=== PATIENT | female | born 1985 | race Caucasian/White ===

== ENCOUNTER 2018-06-27 01:25 | Emergency (ER) | payer MEDICAID ==
[~2018-06-27] VITALS: Ht 175.3 cm; Wt 90.9 kg
[2018-06-27] MEDS ORDERED: ipratropium/albuterol 3ml nebule NEB ONE (01:45)
[2018-06-27] MEDS ORDERED: dexamethasone 4mg tablet PO ONE (01:45)
[2018-06-27 03:25] VITALS: BP 171/118
[2018-06-27] MEDS ORDERED: DOXY100C43 PO (03:59)
[2018-06-27] MEDS ORDERED: ALBU8HFA PO (03:59)
[2018-06-27] MEDS ORDERED: PRED20TA PO (03:59)
== END 2018-06-27 04:18 | disposition left against medical advice (07) ==
LOC: ER 01:26
DX: J20.9 Acute bronchitis, unspecified (principal); J06.9 Acute upper respiratory infection, unspecified; F17.210 Nicotine dependence, cigarettes, uncomplicated; Z88.1 Allergy status to other antibiotic agents; Z79.899 Other long term (current) drug therapy
CPT/HCPCS: 94640; 94760; 99283; J8540

== ENCOUNTER 2018-06-30 17:41 | Inpatient (IN) | payer MEDICAID ==
[~2018-06-30] VITALS: Ht 175.3 cm; Wt 105.2 kg
[~2018-06-30 17:41] MED LIST: ALBU8HFA PO; DOXY100C43 PO; PRED20TA PO
[2018-06-30] MEDS ORDERED: acetaminophen 325mg tablet PO STA (18:04)
[2018-06-30] MEDS ORDERED: normal saline 1000ML IV soln IV ONE (18:05)
[2018-06-30] MEDS ORDERED: methylPREDNISolone sod succ 125mg/2ml vial IV ONE (18:15)
[2018-06-30] MEDS ORDERED: ipratropium/albuterol 3ml nebule NEB ONE (18:15)
[2018-06-30] MEDS ORDERED: azithromycin/NS 500mg/250ml 250 ML IV ONE (18:15)
[2018-06-30] MEDS ORDERED: CefTRIAXone 2gm/D5W 50ml 50 ML IV ONE (18:15)
[2018-06-30 19:05] LABS: ABG BASE EXCESS -2.4 mmol/L (-2.0-3.0); ABG HCO3 20.3 mmol/L (22.0-26.0); ABG OXYGEN SATURATION 86.3 % (95-98); ABG PCO2 (T) 28.4 mmHg (32.0-45.0); ABG PH (T) 7.471 (7.350-7.450); ABG PO2 (T) 51.6 mmHg (83-108); FCOHb 0.2 % (0.5-1.5); FLOW 15 L/min; FMetHb 0.1 % (0.3-1.12); PATIENT TEMPERATURE 36.8; RESPIRATORY RATE (OBSERVED) 26 b/min
[2018-06-30] MEDS ORDERED: LORazepam 2 mg/ml vial IV ONE ×2 (19:10→20:15)
[2018-06-30 19:13] LABS: ALANINE AMINOTRANSFERASE 27 U/L (12-78); ALBUMIN 2.4 G/DL (3.4-5.0); ALBUMIN/GLOBULIN RATIO 0.5 (1.1-1.5); ALKALINE PHOSPHATASE 57 IU/L (46-116); ANION GAP 14 (8-16); ASPARTATE AMINO TRANSFERASE 24 U/L (10-37); BILIRUBIN,TOTAL 0.5 MG/DL (0.1-1.0); BLOOD UREA NITROGEN 40 MG/DL (7-18); CALCIUM 8.3 MG/DL (8.5-10.1); CHLORIDE 104 MMOL/L (99-107); CREATININE 1.54 MG/DL (0.40-0.90); GLUCOSE 215 MG/DL (70-104); POTASSIUM 4.6 MMOL/L (3.5-5.1); SODIUM 138 MMOL/L (135-145); TOTAL CARBON DIOXIDE 20.3 MMOL/L (24-32); TOTAL PROTEIN 6.9 G/DL (6.4-8.2); eGFR 39 ML/MIN
[2018-06-30 19:18] LABS: BASOPHILS % (AUTO) 0.1 % (0-1); EOSINOPHILS # (AUTO) 0.3 X10'3 (0-0.9); EOSINOPHILS % (AUTO) 1.5 % (0-6); HEMATOCRIT 34.9 % (35.0-45.0); HEMOGLOBIN 11.4 g/dl (12.0-16.0); LYMPHOCYTES # (AUTO) 1.6 X10'3 (1.1-4.8); LYMPHOCYTES % (AUTO) 7.5 % (21-51); MEAN CORPUSCULAR HEMOGLOBIN 29.1 PG (27.0-31.0); MEAN CORPUSCULAR HGB CONC 32.6 % (33.0-36.5); MEAN CORPUSCULAR VOLUME 89.2 FL (78-98); MEAN PLATELET VOLUME 8.6 FL (7.4-10.4); MONOCYTES # (AUTO) 0.4 X10'3 (0-0.9); MONOCYTES % (AUTO) 1.7 % (2-12); NEUTROPHILS # (AUTO) 19.6 X10'3 (1.8-7.7); NEUTROPHILS % (AUTO) 89.2 % (42-75); PLATELET COUNT 307 X10'3 (140-440); RED BLOOD COUNT 3.92 X10'6 (4.20-5.60)
[2018-06-30] MEDS ORDERED: furosemide 10 MG/1 ML 10ml inj IV ONE (19:30)
[2018-06-30] MEDS ORDERED: iohexol 350MG/ML 100ml bottle IV ONE (19:33)
[2018-06-30 20:45] LABS: ABG BASE EXCESS -5.1 mmol/L (-2.0-3.0); ABG HCO3 18.9 mmol/L (22.0-26.0); ABG OXYGEN SATURATION 96.5 % (95-98); ABG PH (T) 7.399 (7.350-7.450); ABG PO2 (T) 92.7 mmHg (83-108); FCOHb 0.3 % (0.5-1.5); FMetHb 0.2 % (0.3-1.12); MINUTE VOLUME 33 L/min; PATIENT TEMPERATURE 36.3; RESPIRATORY RATE 14 b/min; RESPIRATORY RATE (OBSERVED) 34 b/min; TOTAL HEMOGLOBIN 11.9 G/dl (12.0-16.0)
[2018-06-30 21:02] LABS: CLARITY,URINE SLIGHTLY CLOUDY (Clear); COLOR,URINE YELLOW (Yellow); GLUCOSE, URINE NEGATIVE (Neg); KETONES,URINE NEGATIVE (Neg); LEUKOCYTE ESTERASE ,URINE SMALL (Neg); NITRITES, URINE NEGATIVE (Neg); OCCULT BLOOD,URINE LARGE (Neg); PROTEIN,URINE TRACE mg/dl (Neg); UROBILINOGEN,URINE 0.2 E.U/dL (0.2-1.0)
[2018-06-30 21:11] LABS: UA COLLECTION TYPE OTHER
[2018-06-30] MEDS ORDERED: vancomycin/NS 1 GM ADD-VANTAGE 250 ML IV ONE (21:15)
[2018-06-30 21:19] LABS: BACTERIA,URINE 2+ /HPF (Neg); SQUAMOUS EPITHELIAL CELL,UR MANY /LPF (FEW); YEAST FEW /HPF (NEGATIVE)
[2018-06-30 21:20] LABS: MUCUS STRANDS MODERATE /LPF (Neg)
[2018-06-30 21:23] LABS: WBC CASTS 0-3 /LPF (NEGATIVE)
[2018-06-30] MEDS ORDERED: magnesium hydroxide 30ml (MOM) UD suspension PO PRN (22:30)
[2018-06-30] MEDS ORDERED: ondansetron/PF 4mg/2ml inj IV PRN (22:30)
[2018-06-30] MEDS ORDERED: acetaminophen 650mg rectal suppository RC PRN (22:30)
[2018-06-30] MEDS ORDERED: acetaminophen 325mg tablet PO PRN (22:30)
[2018-06-30] MEDS ORDERED: potassium Cl 40MEQ/NS 500ml 500 ML IV PRN ×2 (22:30)
[2018-06-30] MEDS ORDERED: morphine 4 MG/ML inj SYRINge IV PRN ×2 (22:30)
[2018-06-30] MEDS ORDERED: labetalol 20mg/4ml (5mg/ml) syringe IV PRN (22:30)
[2018-06-30] MEDS: K, MAG and/or Phos replacement - Verify level? MC SCH (22:30)
[2018-06-30] MEDS ORDERED: potassium Cl 20 mEq SR tablet PO PRN ×2 (22:30)
[2018-06-30] MEDS ORDERED: LORazepam 2 mg/ml vial IV PRN (22:45)
--- NOTE | 2018-06-30 23:30 | NUR ---
Patient will be transferring to room CICU 2013 from ED. I have received report from JACKI Gracia and had the opportunity to ask questions.
--- NOTE | 2018-06-30 23:45 | NUR ---
Pt arrived from ED to room on NRB mask with sats at 99%, immediately transferred pt back to bipap at 80% Fio2. O2 saturations remained 99/100%. Pt somewhat anxious and exhibiting moderate pain. After patient repositioned and given warm blankets, she comfortably fell asleep with no signs of distress.
[2018-06-30] MEDS: ipratropium/albuterol 3ml nebule NEB SCH (23:53)
[2018-07-01] VITALS (23 sets, daily range): BP systolic 120–158; BP diastolic 62–102
[2018-07-01] MEDS: nitroGLYCERIN 1gm ointment UD TP SCH ×3 (01:32→20:24)
[2018-07-01] MEDS: oseltamivir phos 75mg capsule PO SCH ×3 (01:32→20:25)
--- NOTE | 2018-07-01 02:00 | NUR ---
Pt resting comfortably with no complaints.
[2018-07-01] MEDS: methylPREDNISolone sod succ 125mg/2ml vial IV SCH ×4 (02:01→20:23)
[2018-07-01 02:51] LABS: ABG BASE EXCESS 1.1 mmol/L (-2.0-3.0); ABG HCO3 24.9 mmol/L (22.0-26.0); ABG OXYGEN SATURATION 98.9 % (95-98); ABG PCO2 (T) 35.7 mmHg (32.0-45.0); ABG PH (T) 7.459 (7.350-7.450); ALLEN'S TEST Positive; FCOHb 0.3 % (0.5-1.5); FMetHb 0.1 % (0.3-1.12); FO2Hb 98.5 % (94-100); MINUTE VOLUME 13 L/min; PATIENT TEMPERATURE 36.4; RESPIRATORY RATE 14 b/min; RESPIRATORY RATE (OBSERVED) 23 b/min; TIDAL VOLUME 527 mL; TOTAL HEMOGLOBIN 11.6 G/dl (12.0-16.0)
[2018-07-01] MEDS: ipratropium/albuterol 3ml nebule NEB SCH ×6 (03:39→23:54)
[2018-07-01 04:55] LABS: BASOPHILS % (AUTO) 0.1 % (0-1); EOSINOPHILS # (AUTO) 0.2 X10'3 (0-0.9); EOSINOPHILS % (AUTO) 1.6 % (0-6); HEMATOCRIT 32.2 % (35.0-45.0); HEMOGLOBIN 10.7 g/dl (12.0-16.0); LYMPHOCYTES # (AUTO) 1.2 X10'3 (1.1-4.8); LYMPHOCYTES % (AUTO) 9.5 % (21-51); MEAN CORPUSCULAR HEMOGLOBIN 29.5 PG (27.0-31.0); MEAN CORPUSCULAR HGB CONC 33.2 % (33.0-36.5); MEAN CORPUSCULAR VOLUME 88.9 FL (78-98); MEAN PLATELET VOLUME 8.5 FL (7.4-10.4); MONOCYTES # (AUTO) 0.2 X10'3 (0-0.9); MONOCYTES % (AUTO) 1.6 % (2-12); NEUTROPHILS % (AUTO) 87.2 % (42-75); PLATELET COUNT 246 X10'3 (140-440); RED BLOOD COUNT 3.63 X10'6 (4.20-5.60); WHITE BLOOD COUNT 12.6 X10'3 (4.5-11.0)
[2018-07-01 05:23] LABS: ALANINE AMINOTRANSFERASE 23 U/L (12-78); ALBUMIN 2.1 G/DL (3.4-5.0); ALBUMIN/GLOBULIN RATIO 0.5 (1.1-1.5); ALKALINE PHOSPHATASE 52 IU/L (46-116); ANION GAP 9 (8-16); ASPARTATE AMINO TRANSFERASE 14 U/L (10-37); BILIRUBIN,TOTAL 0.4 MG/DL (0.1-1.0); BLOOD UREA NITROGEN 41 MG/DL (7-18); CALCIUM 7.8 MG/DL (8.5-10.1); CHLORIDE 106 MMOL/L (99-107); CREATININE 1.64 MG/DL (0.40-0.90); GLUCOSE 137 MG/DL (70-104); MAGNESIUM 1.9 MG/DL (1.5-2.4); PHOSPHORUS 4.3 MG/DL (2.3-4.5); SODIUM 140 MMOL/L (135-145); TOTAL PROTEIN 6.4 G/DL (6.4-8.2); eGFR 37 ML/MIN
[2018-07-01 05:30] LABS: INR 1.2 INR
[2018-07-01 05:31] LABS: PARTIAL THROMBOPLASTIN TIME 24 SECONDS (22-32)
[2018-07-01] MEDS ORDERED: vancomycin inj 1,250 MG in normal saline 250ml IV soln 250 ML IV SCH (06:00)
--- NOTE | 2018-07-01 06:33 | NUR ---
Problems reprioritized. Patient report given, questions answered & plan of care reviewed with Luis Workman.
[2018-07-01] MEDS ORDERED: furosemide 10 MG/1 ML 10ml inj IV SCH (08:00)
[2018-07-01] MEDS: K, MAG and/or Phos replacement - Verify level? MC SCH (08:00)
[2018-07-01] MEDS ORDERED: LISI-600 PO (10:02)
[2018-07-01] MEDS ORDERED: METO-384 PO (10:02)
[2018-07-01] MEDS ORDERED: QUET100T33 PO (10:02)
[2018-07-01] MEDS ORDERED: ASPI-1130 PO (10:02)
[2018-07-01] MEDS: cefepime 1GM/NS ADD-VANTAGE 100 ML IV SCH ×2 (10:20→20:35)
[2018-07-01] MEDS: pantoprazole 40 MG vial IV SCH (10:20)
[2018-07-01] MEDS: docusate sod 100mg capsule PO SCH ×2 (10:21→20:25)
[2018-07-01] MEDS: heparin, porcine 5000 units/ml vial SQ SCH ×2 (10:21→20:25)
[2018-07-01] MEDS ORDERED: pneumococcal 23-VAL P-sac vacc 25 mcg/0.5ml vial IMVAC ONE (12:00)
--- NOTE | 2018-07-01 12:36 | NUR ---
Initial: Pt admit w/ sepsis, bilateral PNA, new heart failure w/ hx HTN uncontrolled and daily smoker per MD note. S/p echocardiogram and advanced to regular diet from NPO. LBM 06/30. Will monitor for additional protein needs pending PO meals. Pt receiving routine bowel care. Rec: 1. continue regular diet 2. monitor for ONS needs 3. monitor for additional protein reinforcement needs 4. wt per rx Addendum: 07/01/18 at [address]37 [address] Amended: Links added.
[2018-07-01] MEDS ORDERED: zolpidem 5mg tablet PO PRN (18:55)
--- NOTE | 2018-07-01 19:06 | NUR ---
Patient in room CICU 2013. I have received report from JACKI Workman, and had the opportunity to ask questions and assume patient care.
--- NOTE | 2018-07-01 19:07 | NUR ---
Problems reprioritized. Patient report given, questions answered & plan of care reviewed with Almita ECHEVERRIA.
[2018-07-01] MEDS: furosemide 40mg/4ml inj IV SCH (20:22)
[2018-07-01] MEDS: lactobacillus rhamnosus 10,000 MMU CELLS/CAPSULE PO SCH (20:25)
[2018-07-01] MEDS: acetaminophen 325mg tablet PO PRN (20:38)
--- NOTE | 2018-07-01 22:30 | NUR ---
Pt requesting to be placed on BiPAP. BiPAP placed on pt with FiO2 at 35%. Pt tolerated for only two minutes before removing and stating that it made her anxious. Placed on NRB at 10 LPM. Pt able to maintain adequate SpO2 with this.
[2018-07-02] VITALS (22 sets, daily range): BP systolic 121–159; BP diastolic 75–96
--- NOTE | 2018-07-02 00:05 | NUR ---
Padmini, RESPITE PROVIDER, arrived to administer NEB. BiPAP settings adjusted for pt and attempted to replace. Pt states she is still not able to tolerate BiPAP. NRB switched to simple mask.
[2018-07-02] MEDS: methylPREDNISolone sod succ 125mg/2ml vial IV SCH ×4 (01:59→19:08)
[2018-07-02] MEDS: acetaminophen 325mg tablet PO PRN (02:36)
[2018-07-02] MEDS: ipratropium/albuterol 3ml nebule NEB SCH ×6 (03:05→23:00)
--- NOTE | 2018-07-02 06:15 | NUR ---
Problems reprioritized. Patient report given, questions answered & plan of care reviewed with JACKI Lowry.
--- NOTE | 2018-07-02 06:22 | NUR ---
Patient in room CICU 2012. I have received report from Almita ECHEVERRIA and had the opportunity to ask questions and assume patient care. Patient sleeping, mask on flowing at 6L. Will continue to monitor.
[2018-07-02 07:23] LABS: BASOPHILS % (AUTO) 0.2 % (0-1); EOSINOPHILS % (AUTO) 0 % (0-6); HEMATOCRIT 32.7 % (35.0-45.0); HEMOGLOBIN 11.1 g/dl (12.0-16.0); LYMPHOCYTES # (AUTO) 1.1 X10'3 (1.1-4.8); LYMPHOCYTES % (AUTO) 7.1 % (21-51); MEAN CORPUSCULAR HEMOGLOBIN 30.5 PG (27.0-31.0); MEAN CORPUSCULAR HGB CONC 33.9 % (33.0-36.5); MEAN PLATELET VOLUME 8.5 FL (7.4-10.4); MONOCYTES # (AUTO) 0.2 X10'3 (0-0.9); MONOCYTES % (AUTO) 1.3 % (2-12); NEUTROPHILS # (AUTO) 13.9 X10'3 (1.8-7.7); NEUTROPHILS % (AUTO) 91.4 % (42-75); PLATELET COUNT 252 X10'3 (140-440); RED BLOOD COUNT 3.64 X10'6 (4.20-5.60); RED CELL DISTRIBUTION WIDTH 13.9 % (11.5-14.5); WHITE BLOOD COUNT 15.2 X10'3 (4.5-11.0)
[2018-07-02 07:38] LABS: ALANINE AMINOTRANSFERASE 31 U/L (12-78); ALBUMIN 2.2 G/DL (3.4-5.0); ALBUMIN/GLOBULIN RATIO 0.5 (1.1-1.5); ALKALINE PHOSPHATASE 42 IU/L (46-116); ANION GAP 9 (8-16); ASPARTATE AMINO TRANSFERASE 16 U/L (10-37); BILIRUBIN,TOTAL 0.5 MG/DL (0.1-1.0); BLOOD UREA NITROGEN 45 MG/DL (7-18); BUN/CREATININE RATIO 28.8 (6.6-38.0); CALCIUM 8.3 MG/DL (8.5-10.1); CHLORIDE 102 MMOL/L (99-107); CREATININE 1.56 MG/DL (0.40-0.90); GLUCOSE 189 MG/DL (70-104); PHOSPHORUS 4.4 MG/DL (2.3-4.5); POTASSIUM 4.5 MMOL/L (3.5-5.1); SODIUM 136 MMOL/L (135-145); TOTAL CARBON DIOXIDE 25.3 MMOL/L (24-32); TOTAL PROTEIN 6.4 G/DL (6.4-8.2); eGFR 39 ML/MIN
[2018-07-02 07:40] LABS: INR 1.2 INR; PARTIAL THROMBOPLASTIN TIME 24 SECONDS (22-32)
[2018-07-02] MEDS: pantoprazole 40 MG vial IV SCH (07:55)
[2018-07-02] MEDS: furosemide 40mg/4ml inj IV SCH ×3 (07:55→22:38)
[2018-07-02] MEDS: oseltamivir phos 75mg capsule PO SCH ×2 (07:56→19:08)
[2018-07-02] MEDS: nitroGLYCERIN 1gm ointment UD TP SCH ×2 (07:56→19:09)
[2018-07-02] MEDS: docusate sod 100mg capsule PO SCH ×2 (07:56→19:08)
[2018-07-02] MEDS: lactobacillus rhamnosus 10,000 MMU CELLS/CAPSULE PO SCH ×2 (07:56→19:08)
[2018-07-02] MEDS: heparin, porcine 5000 units/ml vial SQ SCH ×2 (07:56→19:09)
[2018-07-02] MEDS: cefepime 1GM/NS ADD-VANTAGE 100 ML IV SCH ×2 (07:58→23:36)
[2018-07-02] MEDS: K, MAG and/or Phos replacement - Verify level? MC SCH (08:00)
--- NOTE | 2018-07-02 18:29 | NUR ---
Problems reprioritized. Patient report given, questions answered & plan of care reviewed with Jacy ECHEVERRIA.
--- NOTE | 2018-07-02 18:30 | NUR ---
Patient in room CICU 2012. I have received report from Essence ECHEVERRIA and had the opportunity to ask questions and assume patient care. Patient resting in bed with eyes closed, respirations even and unlabored with oxygen saturation at 91% on 2L NC. HR in low 80s in sinus rhythm. Will continue to monitor patient.
--- NOTE | 2018-07-02 20:54 | NUR ---
Patient anxious and crying, states "I need to go downstairs to see my boyfriend, I haven't seen him in two days". Informed her, as she and boyfriend had been informed previously, that visiting hours are from 8AM to 8PM. Patient continues to insist that she needs to go downstairs. Patient's boyfriend allowed at bedside to avoid pt leaving AMA. Pt informed that boyfriend may only stay for a few minutes and may not spend the night. Will continue to monitor patient.
--- NOTE | 2018-07-02 21:30 | NUR ---
Patient in room PCU 3023. I have received report from Precious ECHEVERRIA and had the opportunity to ask questions and assume patient care. Transferred to PCU via WC w/o incidence.
--- NOTE | 2018-07-02 21:45 | NUR ---
Problems reprioritized. Patient report given, questions answered & plan of care reviewed with Alejandra ECHEVERRIA. Patient left floor via wheelchair in stable conditon with all belongings, significant other present during transport.
[2018-07-03 02:00] VITALS: BP 131/76
[2018-07-03] MEDS: ipratropium/albuterol 3ml nebule NEB SCH (03:00)
[2018-07-03] MEDS: methylPREDNISolone sod succ 125mg/2ml vial IV SCH (03:49)
[2018-07-03] MEDS ORDERED: VANCOMYCIN LEVEL IV ONE (05:30)
[2018-07-03 06:01] LABS: BASOPHILS % (AUTO) 0.2 % (0-1); EOSINOPHILS % (AUTO) 0 % (0-6); HEMATOCRIT 34.8 % (35.0-45.0); HEMOGLOBIN 11.6 g/dl (12.0-16.0); LYMPHOCYTES # (AUTO) 0.7 X10'3 (1.1-4.8); LYMPHOCYTES % (AUTO) 5.3 % (21-51); MEAN CORPUSCULAR HEMOGLOBIN 30.2 PG (27.0-31.0); MEAN CORPUSCULAR HGB CONC 33.4 % (33.0-36.5); MEAN CORPUSCULAR VOLUME 90.4 FL (78-98); MEAN PLATELET VOLUME 8.7 FL (7.4-10.4); MONOCYTES # (AUTO) 0.5 X10'3 (0-0.9); MONOCYTES % (AUTO) 3.6 % (2-12); NEUTROPHILS # (AUTO) 12.7 X10'3 (1.8-7.7); NEUTROPHILS % (AUTO) 90.9 % (42-75); PLATELET COUNT 254 X10'3 (140-440); RED BLOOD COUNT 3.85 X10'6 (4.20-5.60); WHITE BLOOD COUNT 13.9 X10'3 (4.5-11.0)
[2018-07-03 06:18] LABS: ALANINE AMINOTRANSFERASE 45 U/L (12-78); ALBUMIN 2.3 G/DL (3.4-5.0); ALBUMIN/GLOBULIN RATIO 0.6 (1.1-1.5); ALKALINE PHOSPHATASE 47 IU/L (46-116); ANION GAP 8 (8-16); ASPARTATE AMINO TRANSFERASE 19 U/L (10-37); BILIRUBIN,TOTAL 0.4 MG/DL (0.1-1.0); BLOOD UREA NITROGEN 37 MG/DL (7-18); BUN/CREATININE RATIO 29.8 (6.6-38.0); CALCIUM 7.9 MG/DL (8.5-10.1); CHLORIDE 97 MMOL/L (99-107); CREATININE 1.24 MG/DL (0.40-0.90); GLUCOSE 178 MG/DL (70-104); POTASSIUM 3.6 MMOL/L (3.5-5.1); SODIUM 134 MMOL/L (135-145); TOTAL CARBON DIOXIDE 28.9 MMOL/L (24-32); TOTAL PROTEIN 6.4 G/DL (6.4-8.2); eGFR 50 ML/MIN
[2018-07-03 06:26] LABS: MAGNESIUM 1.8 MG/DL (1.5-2.4); PHOSPHORUS 3.4 MG/DL (2.3-4.5)
--- NOTE | 2018-07-03 06:30 | NUR ---
Problems reprioritized. Patient report given, questions answered & plan of care reviewed with Kiran ECHEVERRIA.
[2018-07-03 06:42] LABS: VANCOMYCIN,TROUGH 29.9 UG/ML (6.0-14.0)
[2018-07-03 06:44] LABS: INR 1.2 INR; PARTIAL THROMBOPLASTIN TIME 24 SECONDS (22-32); PROTHROMBIN TIME 11.8 SECONDS (9.0-12.0)
[2018-07-03 07:00] VITALS: BP 144/84
[2018-07-03] MEDS ORDERED: lisinopril 10 MG tablet PO SCH (08:00)
--- NOTE | 2018-07-03 08:21 | NUR ---
When I arrived this morning at the patient's bedside she was crying and stated she was trying to get in touch with her boyfriend. I asked was there anything I can do and she said no. After about 20 mins she called me in the room and stated that she was leaving because she feels better and she needs to get home to take care of her house. I explained to the patient about leaving without the doctor discharging her and that she has the potential to get even more sick if she leaves before she is ready, she stated that she understands and she still wishes to leave. She stated that it was nothing that the hospital did that makes her want to leave but that it was personal reasons. I removed the pt's PIV and tele and called her a cab at the patients request. Dr. Johns was called and he stated ok thank you and he wants me to inform his team when they arrive to round.
== END 2018-07-03 08:05 | disposition left against medical advice (07) | DRG 133 ==
LOC: ER 17:41 → ED HOLD 22:29 → CICU 2S 23:45 → CMPBEDREQ 23:51 → PCU 3S 07-02 21:45
PROVIDERS: ADMIT Internal Medicine Critical Care Medicine; ATTEND Internal Medicine Critical Care Medicine
PROC: 5A09357 Assistance with Respiratory Ventilation, Less than 24 Consecutive Hours, Continuous Positive Airway Pressure (ICD-10-PCS; principal; 2018-06-30)
PROC: B32T1ZZ Computerized Tomography (CT Scan) of Left Pulmonary Artery using Low Osmolar Contrast (ICD-10-PCS; 2018-06-30)
PROC: B3201ZZ Computerized Tomography (CT Scan) of Thoracic Aorta using Low Osmolar Contrast (ICD-10-PCS; 2018-06-30)
PROC: B32S1ZZ Computerized Tomography (CT Scan) of Right Pulmonary Artery using Low Osmolar Contrast (ICD-10-PCS; 2018-06-30)
PROC: 5A09357 Assistance with Respiratory Ventilation, Less than 24 Consecutive Hours, Continuous Positive Airway Pressure (ICD-10-PCS; 2018-07-02)
DX: J96.00 Acute respiratory failure, unspecified whether with hypoxia or hypercapnia (principal); J18.9 Pneumonia, unspecified organism; I13.0 Hypertensive heart and chronic kidney disease with heart failure and stage 1 through stage 4 chronic kidney disease, or unspecified chronic kidney disease; I27.20 Pulmonary hypertension, unspecified; I50.9 Heart failure, unspecified; I31.3 Pericardial effusion (noninflammatory); J44.0 Chronic obstructive pulmonary disease with (acute) lower respiratory infection; F41.9 Anxiety disorder, unspecified; E66.9 Obesity, unspecified; F12.90 Cannabis use, unspecified, uncomplicated; Z53.21 Procedure and treatment not carried out due to patient leaving prior to being seen by health care provider; F17.210 Nicotine dependence, cigarettes, uncomplicated; N18.9 Chronic kidney disease, unspecified; Z88.1 Allergy status to other antibiotic agents; Z90.49 Acquired absence of other specified parts of digestive tract; Z71.6 Tobacco abuse counseling; Z68.34 Body mass index [BMI] 34.0-34.9, adult; Z79.899 Other long term (current) drug therapy
CPT/HCPCS: 36415; 36600; 71045; 71275; 80053; 80202; 81001; 82803; 82948; 83605; 83735; 83880; 84100; 84145; 84484; 85018; 85025; 85610; 85730; 87040; 87070; 87502; 87503; 90732; 93005; 93306; 94640; 94660; 94760; 96365; 96367; 96375; 96376; 99291; 99292; C9113; G0378; J0456; J0692; J0696; J1644; J1940; J2060; J2270; J2930; J3370; J3490; J7030; Q9967